=== PATIENT | male | born 1985 | race Two or more races ===

== ENCOUNTER 2021-05-10 13:42 | Emergency (ER) | payer BC, OTHER ==
[~2021-05-10] VITALS: Ht 180.3 cm; Wt 88.5 kg
[2021-05-10 14:35] VITALS: BP 130/93
[2021-05-10] MEDS ORDERED: methylPREDNISolone SOD SUCC 125 MG/2 ML VL IM ONE (15:45)
[2021-05-10] MEDS ORDERED: cefTRIAXone 1GM/50ML D5W 50 ML IV ONE (15:45)
[2021-05-10] MEDS ORDERED: LIDOCAINE 1% HCL (LOCAL ANESTH.) INJ 20ML MDV ONE (15:58)
[2021-05-10] MEDS ORDERED: cefTRIAXone SOD 1,000 MG VL IM ONE (16:00)
== END 2021-05-10 16:38 | disposition home or self-care (01) ==
LOC: ER 13:42
DX: J03.90 Acute tonsillitis, unspecified (principal); Z88.0 Allergy status to penicillin; Z20.822 Contact with and (suspected) exposure to COVID-19
CPT/HCPCS: 36415; 71045; 87426; 96372; 99284; J0696; J2001; J2930